=== PATIENT | female | born 1960 | race Caucasian/White ===

== ENCOUNTER 2022-12-23 16:11 | Emergency (ER) | payer OTHER, SELFPAY ==
--- NOTE | ~2022-12-23 | XR_ITS ---
EXAMINATION: XR CHEST CLINICAL INFORMATION: Chest pain COMPARISON: None available. TECHNIQUE: Frontal view of the chest was obtained. FINDINGS: Patient slightly rotated to the right. There is no pneumothorax or pleural reaction or effusion. No lobar or segmental airspace consolidation. There is some mild coarsening of the bronchovascular markings. The heart size is normal. The hilar and mediastinal contours are unremarkable. There are multilevel degenerative changes thoracic spine. XR/XR chest 1V IMPRESSION: Mild coarsening bronchovascular markings. No pneumothorax, airspace consolidation, or effusion.
[2022-12-23 16:13] VITALS: BP 150/84; PULSE 111; RESP 20; TEMP 38.2; O2SAT 95; BMI 45.6
--- NOTE | 2022-12-23 16:14 | ED.GENADULT ---
HPI - General Adult General Chief complaint: Nausea/Vomiting/Diarrhea <CHELSEY Carrasquillo - Last Filed: 12/23/22 16:16> Stated complaint: Cough, Chest pressure, vomiting from medication <CHELSEY Carrasquillo - Last Filed: 12/23/22 16:16> Time Seen by Provider: 12/23/22 19:04 <CHELSEY Carrasquillo - Last Filed: 12/23/22 16:16> Source: patient, family and RN notes reviewed <Dutch Hinton - Last Filed: 12/23/22 20:18> Mode of arrival: ambulatory <Dutch Hinton - Last Filed: 12/23/22 20:18> Limitations: no limitations <Dutch Hinton - Last Filed: 12/23/22 20:18> History of Present Illness HPI narrative: 62-year-old female presents for evaluation of nausea, vomiting. Patient reports that she was initially sick on 12/10/2022, 2 weeks ago She had cough, congestion fevers. She was diagnosed with pneumonia at an urgent care and was given azithromycin and prednisone She completed the antibiotics and still had symptoms with worsening facial pressure The patient then followed up with her primary doctor and was given Augmentin 2 days ago. Patient states that since that medication was given she has had persistent vomiting with nausea. She feels weaker than usual as well She feels that her cough is improving and she is not short of breath <Dutch Hinton - Last Filed: 12/23/22 20:18> Related Data Home medications: Previous Rx's Medication Instructions Recorded ondansetron 4 mg disintegrating 4 mg PO Q8H PRN nausea and 12/23/22 tablet vomiting #20 tabs <CHELSEY Carrasquillo - Last Filed: 12/23/22 16:16> Allergies/adverse reactions: Allergies Allergy/AdvReac Type Severity Reaction Status Date / Time No Known Allergies Allergy Unverified 06/12/20 17:12 [No Known Allergies*] <CHELSEY Carrasquillo Last Filed: 12/23/22 16:16> Review of Systems Constitutional: Constitutional: Reports as per HPI, Denies chills, Denies fatigue, Denies fever(s) and Reports headache(s) <Dutch Last Filed: 12/23/22 20:18> ENT: Reports headache(s), Reports nasal congestion and Reports sinus pressure < Last Filed: 12/23/22 20:18> Cardiovascular: Cardiovascular: Denies chest pain and Denies dyspnea < Last Filed: 12/23/22 20:18> Respiratory: Respiratory: Reports cough and Denies dyspnea < - Last Filed: 12/23/22 20:18> Gastrointestinal: Gastrointestinal: Denies abdominal pain, Denies constipation, Reports nausea and Reports vomiting < Last Filed: 12/23/22 20:18> Genitourinary: Genitourinary: Denies dysuria < Last Filed: 12/23/22 20:18> Neurologic: Reports headache(s) and Denies focal weakness < Last Filed: 12/23/22 20:18> Endocrine: Endocrine: Denies fatigue < Last Filed: 12/23/22 20:18> [facility] Social History Social History: Social History Smoked in Last 30 Days: No Advance Directives: No Advance Directives Information Provided: No <CHELSEY Carrasquillo - Last Filed: 12/23/22 16:16> Physical Exam ED Vital Signs: Vital Signs - 24 hr 12/23/22 16:13 12/23/22 16:18 12/23/22 17:00 Temperature 100.8 F H 101.5 F H 101.0 F H Pulse Rate 111 H 107 H Respiratory Rate 20 20 Blood Pressure 150/84 H 136/71 Pulse Oximetry 95 91 L Oxygen Delivery Method Room Air Room Air 12/23/22 20:00 Temperature 99.8 F Pulse Rate 90 Respiratory Rate 16 Blood Pressure 111/54 L Pulse Oximetry 94 Oxygen Delivery Method Room Air BMI result Body Mass Index 45.6 <CHELSEY Carrasquillo - Last Filed: 12/23/22 16:16> Vital Signs - 24 hr 12/23/22 16:13 12/23/22 16:18 12/23/22 17:00 Temperature 100.8 F H 101.5 F H 101.0 F H Pulse Rate 111 H 107 H Respiratory Rate 20 20 Blood Pressure 150/84 H 136/71 Pulse Oximetry 95 91 L Oxygen Delivery Method Room Air Room Air 12/23/22 20:00 Temperature 99.8 F Pulse Rate 90 Respiratory Rate 16 Blood Pressure 111/54 L Pulse Oximetry 94 Oxygen Delivery Method Room Air BMI result Body Mass Index 45.6 < - Last Filed: 12/23/22 20:18> Const General: healthy appearing, comfortable, no acute distress, alert and awake < - Last Filed: 12/23/22 20:18> Nutritional Appearance: well nourished < - Last Filed: 12/23/22 20:18> Orientation/consciousness: patient oriented x3 < Last Filed: 12/23/22 20:18> HENMT Head: Yes normocephalic and Yes atraumatic < Last Filed: 12/23/22 20:18> Face and sinus: Yes sinus tenderness < Last Filed: 12/23/22 20:18> Throat: Yes posterior oropharynx normal < Last Filed: 12/23/22 20:18> Eyes Eyelids: Yes eyelids normal < Last Filed: 12/23/22 20:18> Conjunctivae: conjunctivae normal < Last Filed: 12/23/22 20:18> Sclerae: sclerae normal < Last Filed: 12/23/22 20:18> Corneas: corneas normal < Last Filed: 12/23/22 20:18> Pupils: Equal, round and reactive pupils present < Last Filed: 12/23/22 20:18> EOM: EOMs intact bilaterally < Last Filed: 12/23/22 20:18> Neck Neck: Yes full ROM < Last Filed: 12/23/22 20:18> Resp Effort & Inspection: normal respiratory effort, able to speak in complete sentences, no audible wheezes and not labored <Dutch Phillips Last Filed: 12/23/22 20:18> Auscultation: clear to auscultation bilaterally <Dutch OChito - Last Filed: 12/23/22 20:18> Cardio Rate: regular rate <Dutch OTyrrell - Last Filed: 12/23/22 20:18> Rhythm: regular rhythm <Dutch OChito - Last Filed: 12/23/22 20:18> GI Inspection: No distended <Dutch OTyrrell - Last Filed: 12/23/22 20:18> Palpation (GI): Soft to palpation, not firm, nontender, no guarding and not rigid <Dutch OTyrrell - Last Filed: 12/23/22 20:18> Auscultation: normoactive bowel sounds <Dutch OTyrrell - Last Filed: 12/23/22 20:18> Skin General skin exam: no rashes or lesions noted and elasticity normal <Dutch OTyrrell - Last Filed: 12/23/22 20:18> Neuro General: patient oriented x3 <Dutch OChito - Last Filed: 12/23/22 20:18> Cranial nerves: Yes CN's II-XII intact bilaterally, Yes Equal, round and reactive pupils present and Yes Bilaterally intact EOM present <Dutch OChito - Last Filed: 12/23/22 20:18> Cognition (Neuro): normal cognition <Dutchbina Phillips Last Filed: 12/23/22 20:18> Extrem Other: Moving all extremities well without any obvious deformities <Dutchbina Phillips Last Filed: 12/23/22 20:18> Course Course Course Narrative: 1614 62-year-old female presenting for evaluation of sinus congestion, fatigue, malaise, dizziness, substernal chest pressure, nausea, vomiting, currently on antibiotics however despite antibiotic symptoms have not been improving. According to patient's family member patient has been seen multiple times by PCP in urgent care initially they told her she had a sinus infection and now they think he she had pneumonia. Patient reports subjective fevers and chills as well. Denies vision changes, headache, sore throat, diarrhea . Not tollerating pO per family Physical exam benign NIH stroke scale 0. Neuro nonfocal. Plan controlled, EKG, basic labs and viral testing <CHELSEY Carrasquillo - Last Filed: 12/23/22 16:16> Medications Administered Generic Name Dose Route Start Last Admin Trade Name Freq PRN Reason Stop Dose Admin Magnesium Sulfate 2 gm in 50 mls @ 25 mls/hr 12/23/22 19:15 12/23/22 19:57 Magnesium Sulfate/H2o IV 12/23/22 21:14 25 mls/hr ONCE ONE Administration Discontinued Medications Generic Name Dose Route Start Last Admin Trade Name Freq PRN Reason Stop Dose Admin Acetaminophen 650 mg 12/23/22 16:18 12/23/22 16:25 Acetaminophen 325 Mg Tablet PO 12/23/22 16:19 650 mg ONCE ONE Administration Sodium Chloride 1,000 mls @ 999 mls/hr 12/23/22 16:15 12/23/22 18:06 Ns IV 12/23/22 17:15 Infused .Q1H1M AD Infusion Magnesium Oxide 800 mg 12/23/22 19:15 12/23/22 19:57 Magnesium Oxide 400 Mg Tablet PO 12/23/22 19:16 800 mg ONCE ONE Administration Ondansetron HCl 4 mg 12/23/22 16:13 12/23/22 16:25 Ondansetron Odt 4 Mg Tab.Rapdis TRANSLINGU 12/23/22 16:14 4 mg ONCE ONE Administration <CHELSEY Carrasquillo - Last Filed: 12/23/22 16:16> Medications Administered Generic Name Dose Route Start Last Admin Trade Name Freq PRN Reason Stop Dose Admin Magnesium Sulfate 2 gm in 50 mls @ 25 mls/hr 12/23/22 19:15 12/23/22 19:57 Magnesium Sulfate/H2o IV 12/23/22 21:14 25 mls/hr ONCE ONE Administration Discontinued Medications Generic Name Dose Route Start Last Admin Trade Name Freq PRN Reason Stop Dose Admin Acetaminophen 650 mg 12/23/22 16:18 12/23/22 16:25 Acetaminophen 325 Mg Tablet PO 12/23/22 16:19 650 mg ONCE ONE Administration Sodium Chloride 1,000 mls @ 999 mls/hr 12/23/22 16:15 12/23/22 18:06 Ns IV 12/23/22 17:15 Infused .Q1H1M AD Infusion Magnesium Oxide 800 mg 12/23/22 19:15 12/23/22 19:57 Magnesium Oxide 400 Mg Tablet PO 12/23/22 19:16 800 mg ONCE ONE Administration Ondansetron HCl 4 mg 12/23/22 16:13 12/23/22 16:25 Ondansetron Odt 4 Mg Tab.Lanedis FREDERICKINGU 12/23/22 16:14 4 mg ONCE ONE Administration <Dutch Hinton - Last Filed: 12/23/22 20:18> Medical Decision Making Medical Decision Making MDM Narrative: 62-year-old female presents for evaluation of facial pressure, congestion, nausea and vomiting. Patient was treated for pneumonia recently. She states her cough is improving and she is not short of breath. Chest x-ray shows no evidence of focal infiltrate/pneumonia. She does have some mild bronchial thickening. Patient started Augmentin 2 days ago for a sinus infection. I feel that the Augmentin is likely the cause of her nausea and vomiting. The patient did not take his medications today and she is not currently nauseous. Her magnesium was low at 1.4 which is likely attributed to her vomiting. This will be replaced IV and p.o.. Discussed with the patient that she may continue taking the Augmentin but we will discharge the patient with antiemetics to take before eating and she can take the Augmentin with food afterwards. She may also use [id number] decongestant. <Dutch Hinton - Last Filed: 12/23/22 20:18> Differential Diagnosis Sinusitis Viral syndrome Bronchitis Pneumonia Nausea and vomiting Gastroenteritis Medication reaction <Dutch Hinton - Last Filed: 12/23/22 20:18> Lab Data Result Diagrams: 12/23/22 16:26 12/23/22 16:26 <CHELSEY Carrasquillo - Last Filed: 12/23/22 16:16> Labs: Lab Results 12/23/22 12/23/22 12/23/22 Range/Units 16:26 16:26 16:26 WBC 9.0 (4.8-10.8) X10*3/uL RBC 4.54 (4.20-5.50) X10*6/uL Hgb 13.5 (12.0-16.0) g/dl Hct 40.8 (37.0-47.0) % MCV 89.9 (80.0-98.0) fL MCH 29.7 (27.0-33.0) pg MCHC 33.1 (31.0-35.0) g/dl RDW 13.4 (11.0-16.0) % Plt Count 261 (160-400) X10*3/uL MPV 11.3 (9.4-12.3) fL Immature Gran % (Auto) 0.4 (0.0-0.4) % Neut % (Auto) 85.3 H (45-73) % Lymph % (Auto) 8.5 L (20-40) % [place] % (Auto) 5.7 (2-11) % Eos % (Auto) 0.0 (0-4) % Baso % (Auto) 0.1 (0-2) % Lymph # (Auto) 0.8 L (1.2-4.9) X10*3/uL [place] # (Auto) 0.5 (0.1-1.2) X10*3/uL Eos # (Auto) 0.0 (0.0-0.4) X10*3/uL Baso # (Auto) 0.0 (0.0-0.2) X10*3/uL Abs Immat Gran (auto) 0.04 H (0.00-0.03) X10*3/uL Absolute Neuts (auto) 7.7 (2.0-8.3) x10*3/uL Absolute Nucleated RBC 0.000 (0.0-0.012) X10*3/uL Nucleated RBC % (auto) 0.0 (0.0-0.2) /100WBC Sodium 139 (135-145) mmol/L Potassium 4.1 (3.3-5.1) mmol/L Chloride 101 (96-108) mmol/L Carbon Dioxide 29 (22-29) mmol/L Anion Gap 13 (12-20) BUN 15 (9-16) mg/dL Creatinine 0.75 (0.5-1.4) mg/dL Estim Creat Clear Calc 99.5 Estimated GFR > 60 Random Glucose 203 H (60-115) mg/dL Calcium 9.0 (8.4-10.2) mg/dL Magnesium 1.4 L* (1.6-2.6) mg/dL Total Bilirubin 1.0 (0.0-1.0) mg/dL AST 15 (5-31) U/L ALT 11 (0-31) U/L Alkaline Phosphatase 58 (39-117) U/L Troponin I High Sens < 3.5 (<3.5-17.0) ng/L B-Natriuretic Peptide (<100) pg/mL Total Protein 7.0 (6.5-8.0) g/dL Albumin 4.1 (3.5-5.0) g/dL Lipase 15 (8-78) U/L COVID-19 (KORIN) (Negative) COVID-19 Clin Com Influenza Type A (KARI) (Negative) Influenza Type B (KARI) (Negative) Influenza A & B Note 12/23/22 12/23/22 12/23/22 Range/Units 16:26 16:26 16:26 WBC (4.8-10.8) X10*3/uL RBC (4.20-5.50) X10*6/uL Hgb (12.0-16.0) g/dl Hct (37.0-47.0) % MCV (80.0-98.0) fL MCH (27.0-33.0) pg MCHC (31.0-35.0) g/dl RDW (11.0-16.0) % Plt Count (160-400) X10*3/uL MPV (9.4-12.3) fL Immature Gran % (Auto) (0.0-0.4) % Neut % (Auto) (45-73) % Lymph % (Auto) (20-40) % [place] % (Auto) (2-11) % Eos % (Auto) (0-4) % Baso % (Auto) (0-2) % Lymph # (Auto) (1.2-4.9) X10*3/uL [place] # (Auto) (0.1-1.2) X10*3/uL Eos # (Auto) (0.0-0.4) X10*3/uL Baso # (Auto) (0.0-0.2) X10*3/uL Abs Immat Gran (auto) (0.00-0.03) X10*3/uL Absolute Neuts (auto) (2.0-8.3) x10*3/uL Absolute Nucleated RBC (0.0-0.012) X10*3/uL Nucleated RBC % (auto) (0.0-0.2) /100WBC Sodium (135-145) mmol/L Potassium (3.3-5.1) mmol/L Chloride (96-108) mmol/L Carbon Dioxide (22-29) mmol/L Anion Gap (12-20) BUN (9-16) mg/dL Creatinine (0.5-1.4) mg/dL Estim Creat Clear Calc Estimated GFR Random Glucose (60-115) mg/dL Calcium (8.4-10.2) mg/dL Magnesium (1.6-2.6) mg/dL Total Bilirubin (0.0-1.0) mg/dL AST (5-31) U/L ALT (0-31) U/L Alkaline Phosphatase (39-117) U/L Troponin I High Sens (<3.5-17.0) ng/L B-Natriuretic Peptide < 10 (<100) pg/mL Total Protein (6.5-8.0) g/dL Albumin (3.5-5.0) g/dL Lipase (8-78) U/L COVID-19 (KORIN) Negative (Negative) COVID-19 Clin Com See Note Influenza Type A (KARI) Negative (Negative) Influenza Type B (KARI) Negative (Negative) Influenza A & B Note See Note <CHELSEY Carrasquillo - Last Filed: 12/23/22 16:16> Lab Results 12/23/22 12/23/22 12/23/22 Range/Units 16:26 16:26 16:26 WBC 9.0 (4.8-10.8) X10*3/uL RBC 4.54 (4.20-5.50) X10*6/uL Hgb 13.5 (12.0-16.0) g/dl Hct 40.8 (37.0-47.0) % MCV 89.9 (80.0-98.0) fL MCH 29.7 (27.0-33.0) pg MCHC 33.1 (31.0-35.0) g/dl RDW 13.4 (11.0-16.0) % Plt Count 261 (160-400) X10*3/uL MPV 11.3 (9.4-12.3) fL Immature Gran % (Auto) 0.4 (0.0-0.4) % Neut % (Auto) 85.3 H (45-73) % Lymph % (Auto) 8.5 L (20-40) % [place] % (Auto) 5.7 (2-11) % Eos % (Auto) 0.0 (0-4) % Baso % (Auto) 0.1 (0-2) % Lymph # (Auto) 0.8 L (1.2-4.9) X10*3/uL [place] # (Auto) 0.5 (0.1-1.2) X10*3/uL Eos # (Auto) 0.0 (0.0-0.4) X10*3/uL Baso # (Auto) 0.0 (0.0-0.2) X10*3/uL Abs Immat Gran (auto) 0.04 H (0.00-0.03) X10*3/uL Absolute Neuts (auto) 7.7 (2.0-8.3) x10*3/uL Absolute Nucleated RBC 0.000 (0.0-0.012) X10*3/uL Nucleated RBC % (auto) 0.0 (0.0-0.2) /100WBC Sodium 139 (135-145) mmol/L Potassium 4.1 (3.3-5.1) mmol/L Chloride 101 (96-108) mmol/L Carbon Dioxide 29 (22-29) mmol/L Anion Gap 13 (12-20) BUN 15 (9-16) mg/dL Creatinine 0.75 (0.5-1.4) mg/dL Estim Creat Clear Calc 99.5 Estimated GFR > 60 Random Glucose 203 H (60-115) mg/dL Calcium 9.0 (8.4-10.2) mg/dL Magnesium 1.4 L* (1.6-2.6) mg/dL Total Bilirubin 1.0 (0.0-1.0) mg/dL AST 15 (5-31) U/L ALT 11 (0-31) U/L Alkaline Phosphatase 58 (39-117) U/L Troponin I High Sens < 3.5 (<3.5-17.0) ng/L B-Natriuretic Peptide (<100) pg/mL Total Protein 7.0 (6.5-8.0) g/dL Albumin 4.1 (3.5-5.0) g/dL Lipase 15 (8-78) U/L COVID-19 (KORIN) (Negative) COVID-19 Clin Com Influenza Type A (KARI) (Negative) Influenza Type B (KARI) (Negative) Influenza A & B Note 12/23/22 12/23/22 12/23/22 Range/Units 16:26 16:26 16:26 WBC (4.8-10.8) X10*3/uL RBC (4.20-5.50) X10*6/uL Hgb (12.0-16.0) g/dl Hct (37.0-47.0) % MCV (80.0-98.0) fL MCH (27.0-33.0) pg MCHC (31.0-35.0) g/dl RDW (11.0-16.0) % Plt Count (160-400) X10*3/uL MPV (9.4-12.3) fL Immature Gran % (Auto) (0.0-0.4) % Neut % (Auto) (45-73) % Lymph % (Auto) (20-40) % [place] % (Auto) (2-11) % Eos % (Auto) (0-4) % Baso % (Auto) (0-2) % Lymph # (Auto) (1.2-4.9) X10*3/uL [place] # (Auto) (0.1-1.2) X10*3/uL Eos # (Auto) (0.0-0.4) X10*3/uL Baso # (Auto) (0.0-0.2) X10*3/uL Abs Immat Gran (auto) (0.00-0.03) X10*3/uL Absolute Neuts (auto) (2.0-8.3) x10*3/uL Absolute Nucleated RBC (0.0-0.012) X10*3/uL Nucleated RBC % (auto) (0.0-0.2) /100WBC Sodium (135-145) mmol/L Potassium (3.3-5.1) mmol/L Chloride (96-108) mmol/L Carbon Dioxide (22-29) mmol/L Anion Gap (12-20) BUN (9-16) mg/dL Creatinine (0.5-1.4) mg/dL Estim Creat Clear Calc Estimated GFR Random Glucose (60-115) mg/dL Calcium (8.4-10.2) mg/dL Magnesium (1.6-2.6) mg/dL Total Bilirubin (0.0-1.0) mg/dL AST (5-31) U/L ALT (0-31) U/L Alkaline Phosphatase (39-117) U/L Troponin I High Sens (<3.5-17.0) ng/L B-Natriuretic Peptide < 10 (<100) pg/mL Total Protein (6.5-8.0) g/dL Albumin (3.5-5.0) g/dL Lipase (8-78) U/L COVID-19 (KORIN) Negative (Negative) COVID-19 Clin Com See Note Influenza Type A (KARI) Negative (Negative) Influenza Type B (KARI) Negative (Negative) Influenza A & B Note See Note <Dutch Hinton - Last Filed: 12/23/22 20:18> Discharge Plan Discharge Clinical Impression: Vomiting, Hypomagnesemia <CHELSEY Carrasquillo - Last Filed: 12/23/22 16:16> Patient Disposition: Home, Self-Care <CHELSEY Carrasquillo - Last Filed: 12/23/22 16:16> Instructions: Acute Nausea and Vomiting (ED) <CHELSEY Carrasquillo - Last Filed: 12/23/22 16:16> Additional Instructions: Your vomiting and nausea is likely related to the antibiotic that he started couple days ago. This medication is known to cause upset stomach. Take ondansetron 30 minutes before eating and then take the antibiotic after eating to help prevent nausea. Your magnesium was low today which was replaced. This is likely due to your vomiting, followed this up with your doctor <CHELSEY Carrasquillo - Last Filed: 12/23/22 16:16> Prescriptions: New ondansetron 4 mg tablet,disintegrating 4 mg PO Q8H PRN (Reason: nausea and vomiting) Qty: 20 0RF <CHELSEY Carrasquillo - Last Filed: 12/23/22 16:16>
[2022-12-23 16:18] VITALS: TEMP 38.6
[2022-12-23] MEDS: Ondansetron ODT 4 MG TAB.RAPDIS TRANSLINGU (16:25)
[2022-12-23] MEDS: Acetaminophen 325 MG TABLET 650 MG PO (16:25)
[2022-12-23 16:37] LABS: MANUAL DIFF FLAG NO
[2022-12-23 16:41] LABS: Basophils Percent Auto 0.1 % (0-2); Hematocrit 40.8 % (37.0-47.0); Hemoglobin 13.5 g/dl (12.0-16.0); Imm Gran Abs Auto 0.04 X10*3/uL (0.00-0.03); Imm Gran Pct Auto 0.4 % (0.0-0.4); Lymphocytes Absolute Auto 0.8 X10*3/uL (1.2-4.9); Lymphocytes Percent Auto 8.5 % (20-40); Mean Corpuscular HGB Conc 33.1 g/dl (31.0-35.0); Mean Corpuscular Hemoglobin 29.7 pg (27.0-33.0); Mean Corpuscular Volume 89.9 fL (80.0-98.0); Mean Platelet Volume 11.3 fL (9.4-12.3); Monocytes Absolute Auto 0.5 X10*3/uL (0.1-1.2); Monocytes Percent Auto 5.7 % (2-11); Neutrophils Absolute Auto 7.7 x10*3/uL (2.0-8.3); Neutrophils Percent Auto 85.3 % (45-73); Platelet Count 261 X10*3/uL (160-400); Red Blood Count 4.54 X10*6/uL (4.20-5.50); Red Cell Distribution Width 13.4 % (11.0-16.0)
[2022-12-23 17:00] VITALS: BP 136/71; PULSE 107; RESP 20; TEMP 38.3; O2SAT 91
[2022-12-23 17:02] LABS: Alanine Aminotransferase 11 U/L (0-31); Albumin Level 4.1 g/dL (3.5-5.0); Alkaline Phosphatase 58 U/L (39-117); Anion Gap 13 (12-20); Aspartate Amino Transferase 15 U/L (5-31); Blood Urea Nitrogen 15 mg/dL (9-16); Carbon Dioxide 29 mmol/L (22-29); Chloride 101 mmol/L (96-108); Creatinine Clr Calc Pharmacy 99.5; Estimated Glomerular Filt Rate > 60; Glucose Random 203 mg/dL (60-115); Lipase 15 U/L (8-78); Magnesium 1.4 mg/dL (1.6-2.6); Potassium 4.1 mmol/L (3.3-5.1); Sodium 139 mmol/L (135-145)
[2022-12-23 17:04] LABS: B Type Natriuretic Peptide < 10 pg/mL (<100)
[2022-12-23 17:06] LABS: COVID-19 Test Negative (Negative); IDNOW Serial# 9DB6401D; IDNOW Serial# BCCEAD1C; Influenza A Negative (Negative); Influenza B2 Negative (Negative)
[2022-12-23 17:09] LABS: Troponin-I High Sensitivity < 3.5 ng/L (<3.5-17.0)
[2022-12-23] MEDS: 0.9 % Sodium Chloride 1,000 ML 999 ML IV (17:13)
[2022-12-23] MEDS: Magnesium Oxide 400 MG TABLET 800 MG PO (19:57)
[2022-12-23] MEDS: Magnesium Sulfate/H2O 2 GM/50 ML PIGGYBACK IV (19:57)
[2022-12-23 20:00] VITALS: BP 111/54; PULSE 90; RESP 16; TEMP 37.7; O2SAT 94
--- NOTE | 2022-12-23 20:49 | PC.NURSE ---
Assumed care of pt. at 1900. Pt. lying in bed trying to sleep at this time with daughter at bedside. Pt. medicated per NOV and when magnesium is done infusing pt. may d/c to home.
== END 2022-12-23 22:10 | disposition home or self-care (01) ==
PROVIDERS: Physician Assistant; Emergency Provider Emergency Medicine Emergency Medical Services; PCP Internal Medicine
DX: R11.2 Nausea with vomiting, unspecified (principal); E83.42 Hypomagnesemia; R07.89 Other chest pain; R50.9 Fever, unspecified; Z20.822 Contact with and (suspected) exposure to COVID-19
CPT/HCPCS: 71045; 80053; 83690; 83735; 83880; 84484; 85025; 87502; 87635; 96361; 96365; 96366; 99284; 99285; J3475